=== PATIENT | male | born 1995 | race Asian ===

== ENCOUNTER 2016-10-22 02:25 | Emergency (ER) | payer OTHER ==
[~2016-10-22] VITALS: Ht 177.8 cm; Wt 71.4 kg
[2016-10-22 02:28] VITALS: TEMP 36.6; Ht 177.8 cm; Wt 71.4 kg
[2016-10-22] MEDS ORDERED: SODIUM CHLORIDE 0.9% 1000ML 1,000 ML IV STA (02:38)
[2016-10-22] MEDS ORDERED: DICYCLOMINE HCL 10 MG/ML 2 ML AMP IM ONE (02:45)
[2016-10-22 03:02] LABS: BASO % 0.2 %; BASO ABS # 0.02 K/uL (0-0.2); COMPLETE YES; EOS % 0.8 %; HEMATOCRIT 43.6 % (42-52); IG% 0.2 %; LYMPH % 26.9 %; LYMPH ABS # 2.23 K/uL (1.2-3.4); MEAN CELL VOLUME 85.7 fL (80-100); MEAN CORPUSCULAR HEMOGLOBIN 30.3 pg (25-34); MEAN CORPUSCULAR HGB CONC 35.3 g/dl (32-36); MEAN PLATELET VOLUME 9.4 fL (7.4-10.4); MONO % 10.3 %; NEUT % 61.6 %; PLATELET COUNT 214 K/uL (130-400); RED BLOOD COUNT 5.09 M/uL (4.7-6.1); WHITE BLOOD COUNT 8.29 K/uL (4.8-10.8)
[2016-10-22 03:03] LABS: URINE APPEARANCE CLEAR (CLEAR); URINE BILIRUBIN NEG (NEG); URINE COLOR ORANGE; URINE NITRITE NEG (NEG); URINE SPECIFIC GRAVITY 1.016 (1.000-1.030); UROBILINOGEN NEG (NEG); ZZUR CULT IF INDIC CLEAN CATCH NO
[2016-10-22 03:05] LABS: MANUAL MICROSCOPIC REQUIRED? NO; REVIEW REQ? NO
[2016-10-22 03:24] LABS: BUN/CREATININE RATIO 10.9 (10-20); CALCIUM 9.6 mg/dl (8.5-10.1); CREATININE 1.1 mg/dl (0.60-1.40); POTASSIUM 4.2 mmol/L (3.5-5.1)
[2016-10-22] MEDS ORDERED: DICY10CA55 PO (03:59)
--- NOTE | 2016-10-22 03:59 | EMERGENCY ROOM VISIT NOTE ---
History First contact with patient: 02:35 Chief Complaint: ABDOMINAL PAIN Stated Complaint: UPSET STOMACH,TINGLING IN RT HAND/LEG,FREQ URINATI Nursing Triage Summary: Pt reports lower abdominal pain and diarrhea for past few days. Pt reports difficulty urinating. History of Present Illness The patient is a 20 year old male who presents to the Emergency Room with complaints of diffuse abdominal cramping and occasional diarrhea for the past few days with urinary discomfort. Patient describes the pain as cramping, mild , 2 out of 10 throughout the abdomen. No localized pain. Nothing makes it better or worse. Patient has chest pain, dyspnea, fever, chills, nausea, vomiting, penile pain, testicular pain, exposure to STI's, risk for STI's, back pain, fever, chills. He is tolerate by mouth fluids and food. Patient states he has underneath more stressed lately and eats a lot of spicy food. Review of Systems See HPI for pertinent positives & negatives. A total of 10 systems reviewed and were otherwise negative. Past Medical/Surgical History None Social History Smoking Status: Never Smoker Smokeless Tobacco Use: No Alcohol Use: none Drug Use: none Marital Status: single Occupation Status: [employer] student Current/Historical Medications No Active Prescriptions or Reported Meds Physical Exam Vital Signs Date Time Temp Pulse Resp B/P (MAP) Pulse Ox O2 Delivery O2 Flow Rate FiO2 10/22/16 03:25 47 10/22/16 03:01 Room Air 10/22/16 02:28 36.6 59 20 119/85 98 Room Air Physical Exam VITALS: Vitals are noted on the nurse's note and reviewed by myself. Vital signs stable. GENERAL: Pleasant male, in no acute distress, nondiaphoretic, well-developed well-nourished. SKIN: The skin was without rashes, erythema, edema, or bruising. There is no tenting of the skin. Capillary reflex less than 2 seconds. HEAD: Normocephalic atraumatic. EARS: External auditory canals clear, tympanic membranes pearly quintana without erythema or effusion bilaterally. EYES: Pupils equal round and reactive to light and accommodation. Conjunctivae without injection, sclerae without icterus. Extraocular movements intact. NOSE: Patent, turbinates without inflammation or discharge. MOUTH: Mucous membranes moist. Pharynx without erythema or exudate. Uvula midline. Airway patent. Tongue does not deviate. NECK: Supple without nuchal rigidity. No lymphadenopathy. No thyromegaly. Cervical spine is nontender. No JVD. HEART: Regular rate and rhythm without murmurs gallops or rubs. LUNGS: Clear to auscultation bilaterally without wheezes, rales or rhonchi. No dullness to percussion. No retractions or accessory muscle use. ABDOMEN: Positive bowel sounds x 4. Normal tympanic percussion. Soft, nontender, without masses or organomegaly. Green sign negative. No guarding or rebound tenderness. no CVA tenderness MUSCULOSKELETAL: No muscle atrophy, erythema, or edema noted. NEURO: Patient was alert and oriented to person place and time. Normal sensation to light and sharp touch. No focal neurological deficits. Medical Decision & Procedures Laboratory Results 10/22/16 02:45 Red Blood Count 5.09, Mean Corpuscular Volume 85.7, Mean Corpuscular Hemoglobin 30.3, Mean Corpuscular Hemoglobin Concent 35.3, Mean Platelet Volume 9.4, Neutrophils (%) (Auto) 61.6, Lymphocytes (%) (Auto) 26.9, Monocytes (%) (Auto) 10.3, Eosinophils (%) (Auto) 0.8, Basophils (%) (Auto) 0.2, Neutrophils # (Auto ) 5.10, Lymphocytes # (Auto) 2.23, Monocytes # (Auto) 0.85, Eosinophils # (Auto ) 0.07, Basophils # (Auto) 0.02 10/22/16 02:45 Test 10/22/16 02:40 10/22/16 02:45 Urine Color ORANGE Urine Appearance CLEAR (CLEAR) Urine pH 5.0 (4.5-7.5) Urine Specific [place] 1.016 (1.000-1.030) Urine Protein NEG (NEG) Urine Glucose (UA) NEG (NEG) Urine Ketones NEG (NEG) Urine Occult Blood NEG (NEG) Urine Nitrite NEG (NEG) Urine Bilirubin NEG (NEG) Urine Urobilinogen NEG (NEG) Urine Leukocyte Esterase NEG (NEG) White Blood Count 8.29 K/uL (4.8-10.8) Red Blood Count 5.09 M/uL (4.7-6.1) Hemoglobin 15.4 g/dL (14.0-18.0) Hematocrit 43.6 % (42-52) Mean Corpuscular Volume 85.7 fL (80-100) Mean Corpuscular Hemoglobin 30.3 pg (25-34) Mean Corpuscular Hemoglobin Concent 35.3 g/dl (32-36) Platelet Count 214 K/uL (130-400) Mean Platelet Volume 9.4 fL (7.4-10.4) Neutrophils (%) (Auto) 61.6 % Lymphocytes (%) (Auto) 26.9 % Monocytes (%) (Auto) 10.3 % Eosinophils (%) (Auto) 0.8 % Basophils (%) (Auto) 0.2 % Neutrophils # (Auto) 5.10 K/uL (1.4-6.5) Lymphocytes # (Auto) 2.23 K/uL (1.2-3.4) Monocytes # (Auto) 0.85 K/uL (0.11-0.59) Eosinophils # (Auto) 0.07 K/uL (0-0.5) Basophils # (Auto) 0.02 K/uL (0-0.2) RDW Standard Deviation 38.9 fL (36.4-46.3) RDW Coefficient of Variation 12.3 % (11.5-14.5) Immature Granulocyte % (Auto) 0.2 % Immature Granulocyte # (Auto) 0.02 K/uL (0.00-0.02) Anion Gap 6.0 mmol/L (3-11) Est Creatinine Clear Calc Drug Dose 109.1 ml/min Estimated GFR () 112.2 Estimated GFR (Non- 96.8 BUN/Creatinine Ratio 10.9 (10-20) Calcium Level 9.6 mg/dl (8.5-10.1) Total Bilirubin 0.6 mg/dl (0.2-1) Direct Bilirubin 0.1 mg/dl (0-0.2) Aspartate Amino Transf (AST/SGOT) 17 U/L (15-37) Alanine Aminotransferase (ALT/SGPT) 27 U/L (12-78) Alkaline Phosphatase 98 U/L (45-117) Total Protein 8.0 gm/dl (6.4-8.2) Albumin 4.5 gm/dl (3.4-5.0) Lipase 261 U/L (73-393) Medications Administered Medications (Trade) Dose Ordered Sig/Hunter Route Start Time Stop Time Status Last Admin Dose Admin Dicyclomine HCl (Bentyl Inj) 20 mg NOW ONCE IM 10/22/16 02:45 10/22/16 02:46 DC 10/22/16 03:02 20 MG Sodium Chloride 1,000 ml @ 999 mls/hr Q1H1M STAT IV 10/22/16 02:38 10/22/16 03:38 DC 10/22/16 03:02 999 MLS/HR ED Course Prior records/ancillary studies reviewed. Triage Nursing notes reviewed. The patient's history was concerning for abdominal pain. Differential diagnosis: Etiologies such as IBS, appendicitis, diverticulitis, PUD, biliary pathology, UTI, pancreatitis, obstruction, mesenteric ischemia, aortic pathology, infections, inflammatory bowel disease, renal colic, as well as others were entertained. Physical examination findings: As above. ER treatment provided: honey, NSS On reassessment the patient felt better. Diagnostics interpreted by me: The labs revealed hyperglycemia without DKA, negative urine Exam and history seem consistent with abdominal cramping mostly from IBS. Patient's been under more stress lately. He's been eating spicy foods. He was advised to do bland diet and try medications as directed. He is advised to follow-up family care in a few days or here in the ER sooner for abdominal pain , fevers, vomiting, worsening signs or symptoms or as needed. Patient did not have acute abdomen on exam. He is well-appearing. He is advised follow-up for his hyperglycemia seen on blood testing as above. By the evaluation outlined above emergent etiologies such as appendicitis, diverticulitis, PUD, biliary pathology, UTI, pancreatitis, obstruction, mesenteric ischemia, aortic pathology, infections, inflammatory bowel disease, renal colic, as well as others were deemed relatively unlikely. The pt informed about the findings as listed above. All questions were answered and pleased with the treatment. Return instructions were outlined and the patient was discharged in stable condition. Outpatient prescription management: bentyl Referral: The patient was referred back to their primary care physician for follow-up in 2 to 3 days for a recheck of the current condition. case reviewed with my Attending Medical Decision as above Medication Reconcilliation Current Medication List: was personally reviewed by me Blood Pressure Screening Patient's blood pressure: Normal blood pressure Impression Primary Impression: Abdominal cramping Additional Impression: Hyperglycemia Departure Information Dispostion Home / Self-Care Condition GOOD Prescriptions No Active Prescriptions or Reported Meds Referrals [facility] (PCP) Patient Instructions My [facility] Additional Instructions Your blood sugar was high today. Have this rechecked with your family care doctor in one week for possible diabetes. Bentyl 10 m tablet every 6 hours as needed for abdominal cramping and bloating. Recommend bland diet for the next 2 days. Recommend decrease stress. Rest and drink plenty of fluids as tolerated. Continue current medications. Return to the ER immediately for abdominal pain, vomiting, fevers, chest pains , difficulty breathing, worsening of your condition, or as needed. Follow up with your primary physician in 2-3 days for a recheck of your current condition. Problem Qualifiers
[2016-10-22] MEDS ORDERED: BENTYL HOME PACK 10 MG VIAL PO ONE (04:00)
[2016-10-22 04:07] VITALS: BP 123/55; PULSE 61; O2SAT 100
== END 2016-10-22 04:07 | disposition home or self-care (01) ==
LOC: C.EDB 02:27 → C.EDA 04:07
DX: R10.9 Unspecified abdominal pain (principal); R73.9 Hyperglycemia, unspecified